=== PATIENT | male | born 1970 | race Caucasian/White ===

== ENCOUNTER 2020-02-09 08:14 | Emergency (ER) | payer BC, OTHER ==
[2020-02-09 08:28] VITALS: BP 150/97
[2020-02-09] MEDS ORDERED: Tetan/Diph/Pertus SYR(Tdap)* 0.5 ML SYR(BOOSTRIX) use SYR contains LATEX IM ONE (08:41)
--- NOTE | 2020-02-09 08:55 | UC ---
Lower Extremity/Ankle HPI - HPI Summary HPI Summary: 49 yo male hit dorsum of right foot with an axe 4 days ago He was splitting kindling while wearing sneakers Axe glance off a knot He has be cleaning foot twice daily and denies fever or pus He is pain free at rest Tet status unknow He has no PCP - History of Current Complaint Chief Complaint: UCLaceration Stated Complaint: RT FOOT INJURY Time Seen by Provider: 02/09/20 08:19 Hx Obtained From: Patient Onset/Duration: Sudden Onset, Lasting Days Severity Initially: Moderate Severity Currently: None Pain Intensity: 0 Pain Scale Used: 0-10 Numeric Aggravating Factor(s): Standing, Ambulation Alleviating Factor(s): Rest Able to Bear Weight: Yes Feet (Multiple View): 1 - laceration dorsum of mid foot/swelling/no erythema/no pus /distal N-V intact - Allergies/Home Medications Allergies/Adverse Reactions: Allergies Allergy/AdvReac Type Severity Reaction Status Date / Time No Known Allergies Allergy Verified 02/09/20 08:28 Home Medications: Home Medications Cephalexin CAP* [Keflex CAP*] 500 mg PO QID #28 cap 02/09/20 [Rx] PMH/Surg Hx/FS Hx/Imm Hx Previously Healthy: Yes - Surgical History Surgical History: None - Family History Known Family History: Negative: Hypertension, Blood Disorder - Social History Alcohol Use: Daily Alcohol Amount: 3 beers Substance Use Type: None Smoking Status (MU): Current Every Day Smoker Amount Used/How Often: 1 ppd Length of Time of Smoking/Using Tobacco: 10 yr Cessation Counseling: Patient Advised to Stop Review of Systems All Other Systems Reviewed And Are Negative: Yes Constitutional: Positive: Negative Skin: Positive: Other - see HPI Eyes: Positive: Negative ENT: Positive: Negative Respiratory: Positive: Negative Cardiovascular: Positive: Negative Gastrointestinal: Positive: Negative Genitourinary: Positive: Negative Motor: Positive: Negative Neurovascular: Positive: Negative Musculoskeletal: Positive: Negative Neurological/Mental Status: Positive: Negative Psychological: Positive: Negative Physical Exam Triage Information Reviewed: Yes Appearance: Well-Appearing, No Pain Distress, Well-Nourished Vital Signs: Initial Vital Signs Temp 98.1 F 02/09/20 08:22 Pulse 88 02/09/20 08:22 Resp 17 02/09/20 08:22 BP 150/97 02/09/20 08:22 Pulse Ox 99 02/09/20 08:22 Vital Signs Reviewed: Yes Eyes: Positive: Conjunctiva Clear ENT: Positive: Hearing grossly normal. Negative: Nasal congestion, Nasal drainage, Trismus, Muffled voice, Hoarse voice Neck: Positive: Supple, Nontender, No Lymphadenopathy Respiratory: Positive: Lungs clear, Normal breath sounds, No respiratory distress, No accessory muscle use Cardiovascular: Positive: RRR, No Murmur Neurological Exam: Normal Neurological: Positive: Alert Psychological Exam: Normal Skin Exam: Other - see image Diagnostics - Radiology No standard instances Radiology Interpretation Completed By: Radiologist Summary of Radiographic Findings: no fx Lower Extremity Course/Dx - Differential Dx/Diagnosis Provider Diagnosis: Laceration of right foot excluding toes, Elevated BP without diagnosis of hypertension, Smoker Discharge ED - Sign-Out/Discharge Documenting (check all that apply): Patient Departure All imaging exams completed and their final reports reviewed: Yes - Discharge Plan Condition: Stable Disposition: HOME Prescriptions: Cephalexin CAP* [Keflex CAP*] 500 mg PO QID #28 cap Patient Education Materials: Laceration Without Closure (ED) Referrals: [facility] [place]Outside] - If Needed (you should find a primary care provider for routine health maintence and to follow your BP) Additional Instructions: warm soapy soaks twice daily thin covering of ointment ( I like aquaphor healing ointment) dressing until healed recheck for new or worsening symptoms you need to decrease or stop smoking - Billing Disposition and Condition Condition: STABLE Disposition: Home
== END 2020-02-09 09:34 | disposition home or self-care (01) ==
LOC: UCCORT 08:14
DX: S91.311A Laceration without foreign body, right foot, initial encounter (principal); W27.0XXA Contact with workbench tool, initial encounter; Y93.89 Activity, other specified; Y92.9 Unspecified place or not applicable; Z23 Encounter for immunization; R03.0 Elevated blood-pressure reading, without diagnosis of hypertension; F17.200 Nicotine dependence, unspecified, uncomplicated
CPT/HCPCS: 90471; 90715; 99202; G0463